=== PATIENT | female | born 1960 | race African-American/Black ===

== ENCOUNTER → 2016-06-20 | Outpatient (CLI) | payer BC ==
[~2016-06-20] VITALS: Ht 172.7 cm; Wt 114.0 kg
[~2016-06-20] MED LIST: ADV250 IH; ALBU8HFA IH; AMLO-511 PO; AMLO-512 PO; AUD NEB; BENZ-26 PO; BENZ1LOZ68 PO; BUDE0.5A6 NEB; GUAI100L34 PO; LOSA1TAB36 PO; LOSA1TAB37 PO; NYST5S PO; PRED5TAB PO
[2016-06-20 14:16] VITALS: BP 118/72
== END | disposition home or self-care (01) ==
LOC: SRCNTR 13:52
PROVIDERS: ATTEND Internal Medicine Critical Care Medicine
DX: I10 Essential (primary) hypertension (principal); J45.41 Moderate persistent asthma with (acute) exacerbation; E66.01 Morbid (severe) obesity due to excess calories; J06.9 Acute upper respiratory infection, unspecified
CPT/HCPCS: G0463

== ENCOUNTER → 2016-11-21 | Outpatient (CLI) | payer BC ==
[~2016-11-21] VITALS: Ht 172.7 cm; Wt 111.6 kg
[~2016-11-21] MED LIST changes: -AMLO-511 PO; -BENZ-26 PO; -BENZ1LOZ68 PO; -BUDE0.5A6 NEB; +FLUT12AE7 IH; -GUAI100L34 PO; -NYST5S PO; +VITA400T9 PO; +VITAD1000 PO
[2016-11-21 13:36] VITALS: BP 121/74
== END | disposition home or self-care (01) ==
LOC: SRCNTR 13:31
PROVIDERS: ATTEND Internal Medicine Critical Care Medicine
DX: I10 Essential (primary) hypertension (principal); J45.41 Moderate persistent asthma with (acute) exacerbation; E66.01 Morbid (severe) obesity due to excess calories; J06.9 Acute upper respiratory infection, unspecified
CPT/HCPCS: G0463

== ENCOUNTER → 2016-12-06 | Outpatient (CLI) | payer BC ==
[~2016-12-06] VITALS: Ht 172.7 cm; Wt 112.0 kg
[~2016-12-06] MED LIST changes: -ADV250 IH; -LOSA1TAB36 PO
[2016-12-06 14:01] VITALS: BP 123/73
== END | disposition home or self-care (01) ==
LOC: SRCNTR 13:40
PROVIDERS: ATTEND Internal Medicine Critical Care Medicine
DX: I10 Essential (primary) hypertension (principal); J45.41 Moderate persistent asthma with (acute) exacerbation; E66.01 Morbid (severe) obesity due to excess calories; J06.9 Acute upper respiratory infection, unspecified; Z90.710 Acquired absence of both cervix and uterus
CPT/HCPCS: G0463

== ENCOUNTER → 2016-12-19 | Outpatient (CLI) | payer BC ==
[~2016-12-19] VITALS: Ht 172.7 cm; Wt 112.0 kg
[2016-12-19 11:13] VITALS: BP 123/76
== END | disposition home or self-care (01) ==
LOC: SRCNTR 11:06
PROVIDERS: ATTEND Internal Medicine Critical Care Medicine
DX: J45.41 Moderate persistent asthma with (acute) exacerbation (principal); I10 Essential (primary) hypertension; E66.01 Morbid (severe) obesity due to excess calories; J06.9 Acute upper respiratory infection, unspecified
CPT/HCPCS: G0463

== ENCOUNTER → 2017-03-27 | Outpatient (CLI) | payer BC ==
[~2017-03-27] VITALS: Ht 172.7 cm; Wt 110.0 kg
[~2017-03-27] MED LIST changes: +MULT-1259 PO
[2017-03-27 11:14] VITALS: BP 117/70
== END | disposition home or self-care (01) ==
LOC: SRCNTR 11:05
PROVIDERS: ATTEND Internal Medicine Critical Care Medicine
DX: J45.41 Moderate persistent asthma with (acute) exacerbation (principal); E66.01 Morbid (severe) obesity due to excess calories; I10 Essential (primary) hypertension; J06.9 Acute upper respiratory infection, unspecified; L50.9 Urticaria, unspecified; Z88.0 Allergy status to penicillin; Z90.710 Acquired absence of both cervix and uterus
CPT/HCPCS: G0463